=== PATIENT | female | born 1970 | race Caucasian/White ===

== ENCOUNTER 2021-07-13 14:56 | Emergency (ER) | payer OTHER ==
[~2021-07-13] VITALS: Ht 170.2 cm; Wt 72.8 kg
[2021-07-13 15:00] VITALS: BP 123/86
[2021-07-13] MEDS ORDERED: LIDOCAINE 1% Multi-Dose 20 ML VIAL. IJ ONE (15:15)
--- NOTE | 2021-07-13 15:20 | PHYS DOC ---
Past History Past Medical History: No Pertinent History (JOSE KINCAID APRN) Past Surgical History: No Surgical History (JOSE KINCAID APRN) Alcohol Use: Occasionally Drug Use: None (JOSE KINCAID APRN) General Adult EDM: Chief Complaint: LACERATION/AVULSION HPI: HPI: Patient is a 51-year-old female who presents to the emergency department for a laceration to her right ring finger. Patient reports that she was unloading something off of a folding ramp when it fell back and crushed her finger. She denies any decreased sensation to her extremity or decreased range of motion. (JOSE KINCAID APRN) Review of Systems: Review of Systems: Musculoskeletal: See HPI Integument: Ports laceration to tip of right fourth finger Neurologic: See HPI (JOES KINCAID APRN) Current Medications: Current Meds: Current Medications Medications (Trade) Dose Ordered Sig/Lynne Start Time Stop Time Status Last Admin Dose Admin Diphtheria/ Tetanus/Acell Pertussis (Boostrix) 0.5 ml ONCE ONCE 07/13/21 15:15 07/13/21 15:16 UNV Lidocaine HCl 20 ml 1X ONCE 07/13/21 15:15 07/13/21 15:16 UNV (JOSE KINCAID APRN) Allergies: Allergies: Allergies Coded Allergies Type Severity Reaction Last Updated Verified codeine Allergy Unknown 08/01/14 No (JOSE KINCAID APRN) Physical Exam: PE: Constitutional: Well developed, well nourished, no acute distress, non-toxic appearance. [] HENT: Normocephalic, atraumatic, bilateral external ears normal, oropharynx moist, no oral exudates, nose normal. [] Eyes: PERRL, EOMI, conjunctiva normal, no discharge. [] Neck: Normal range of motion, no stridor Cardiovascular normal peripheral perfusion Lungs & Thorax no work of breathing, no tachypnea Abdomen: Soft and flat Skin: Warm, dry, no erythema, no rash. [] Back: No tenderness, full range of motion Extremities: No tenderness, no cyanosis, no clubbing, ROM intact, no edema. [] Right fourth finger: 1 cm laceration noted to the tip of the finger, no visible foreign bodies, small subungual hematoma, range of motion intact, no obvious deformity Neurologic: Alert and oriented X 3, normal motor function, normal sensory function, no focal deficits noted. [] Psychologic: Affect normal, judgement normal, mood normal. [] (JOSE KINCAID APRN) Current Patient Data: Vital Signs: Vital Signs Date Time Temp Pulse Resp B/P (MAP) Pulse Ox O2 Delivery O2 Flow Rate FiO2 07/13/21 15:00 65 16 123/86 (98) 100 Room Air (JOSE KINCAID APRN) EKG: EKG: [] (JOSE KINCAID APRN) Radiology/Procedures: Radiology/Procedures: []STATUS: REG ERORD. PHYSICIAN: JOSE KINCAID APRN REASON: crush injury PROCEDURE: FINGER(S) RIGHT XR FINGER(S)_RIGHT 2+VIEWS Clinical indications: Reason: crush injury /pain. Findings: There is a fracture of the medial tuft of the fourth distal phalanx. No dislocation or lytic process is seen. IMPRESSION: Fracture of the fourth distal phalanx. Electronically signed by: Maximo Morales MD (07/13/2021 3:40 PM) [id number] DICTATED AND SIGNED BY: MAXIMO MORALES MD DATE: 07/13/21 1539 CC: [facility] [place]; JOSE KINCAID APRN ~ (JOSE KINCAID APRN) Heart Score: C/O Chest Pain: N/A Risk Factors: Risk Factors: DM, Current or recent (<one month) smoker, HTN, HLP, family history of CAD, obesity. Risk Scores: Score 0 - 3: 2.5% MACE over next 6 weeks - Discharge Home Score 4 - 6: 20.3% MACE over next 6 weeks - Admit for Clinical Observation Score 7 - 10: 72.7% MACE over next 6 weeks - Early Invasive Strategies (JOSE KINCAID APRN) Course & Med Decision Making: Course & Med Decision Making Pertinent Labs and Imaging studies reviewed. (See chart for details) [] Patient presents to the emergency department today for a laceration to the tip of her right fourth finger. Patient reports that her tetanus is up-to-date. This was cleansed in the emergency department. An x-ray was performed to rule out acute fracture. X-ray showed a fracture of the distal phalanx of the fourth finger. Patient's finger was irrigated with saline and Betadine solution. No foreign bodies noted. Laceration was repaired with sutures. Considred type I injury. Patient does have a subungual hematoma trephination was performed. Patient tolerated procedure. She is neurovascularly intact. Dressing was placed and patient was placed in a aluminum finger splint. Educated on wound care and suture removal. She was given referral information for orthopedic. I discussed with patient all findings and diagnostic testing as well as the need to follow-up with PCP for further evaluation and treatment or return to the ER if any new or worsening symptoms. Strict return precautions were also discussed at length. Patient voiced understanding and agreement with the plan. Patient is hemodynamically stable at the time of disposition. (JOSE KINCAID APRN) Dragon Disclaimer: Dragon Disclaimer: This electronic medical record was generated, in whole or in part, using a voice recognition dictation system. (JOSE KINCAID APRN) Laceration Repair Lac Repair Time: 1614 Confirmed: Patient, procedure, site, and site correct Consent: Patient has given verbal consent Laceration location: Distal portion of patient's right with finger Shape: Linear Depth: Subcutaneous tissue involvement Details: Clean with no foreign material Neurovascular, tendon exam: Intact Anesthesia: 1% lidocaine digital block Preparation: Sterile field established Irrigation: Wound irrigated with sterile saline Betadine Skin closure: Simple interrupted sutures placed Size of suture: 6-0 Ethilon Number of sutures: 5 Complexity: Single layer Post procedure exam: Circulation, motor, sensory exam intact, bleeding controlle d. Complications: None Patient tolerated: Well Performed by: self Total time: 30 minutes Trephination performed. (JOSE KINCAID APRN) Attending Co-Sign The patient was seen and interviewed as well as examined at the bedside. The chart was reviewed. The case was discussed. Agree with the plan of care. (MARISSA COLEMAN DO) Departure Departure: Impression: Primary Impression: Open finger fracture Qualified Codes: S62.664B - Nondisplaced fracture of distal phalanx of right ring finger, initial encounter for open fracture Disposition: HOME / SELF CARE / HOMELESS Condition: GOOD Referrals: JESSICA FLETCHER LMS[facility] (PCP) Patient Instructions: Finger Fracture, Laceration Care, Adult Additional Instructions: You are seen in the emergency department today following a crush injury to your finger. You are noted to have a fracture of the distal portion of your fourth finger. You were also noted to have a laceration which was repaired with sutures. Please keep this laceration site clean and dry by washing with mild soap and warm water. You will need to follow-up with your primary care provider return to the emergency department to have your sutures removed in 7 to 10 days. Keep the dressing in place as you may continue to have bleeding under your fingernail. Please wear the aluminum finger splint that was placed for you. You are being discharged home with antibiotics please start and finish it completely. Take Tylenol and ibuprofen for pain. You can also apply ice. You will need to follow-up with a hand surgeon as soon as possible. Please contact hand surgery at [phone] to set up a follow-up appointment on Thursday. Follow-up with your primary care provider on Thursday. Return to the emergency department if you develop increased pain, decreased range of motion, decreased sensation in your finger, any signs of infection as evidenced by redness, warmth, swelling or drainage, high fevers refractory to treatment, intractable nausea or vomiting. Scripts Cephalexin (KEFLEX) 500 Mg Capsule 1 CAP PO QID for infection for 7 Days, #28 CAP 0 Refills Prov: JOSE KINCAID APRN 07/13/21 JOSE KINCAID APRN Jul 13, 2021 15:20 MARISSA COLEMAN DO Jul 14, 2021 16:49
[2021-07-13] MEDS ORDERED: DIPHTH,PERTUSS(ACELL),TET TOX 0.5 ML DISP.SYRIN. VAX IM ONE (15:30)
--- NOTE | 2021-07-13 15:42 | RAD ---
XR FINGER(S)_RIGHT 2+VIEWS Clinical indications: Reason: crush injury /pain. Findings: There is a fracture of the medial tuft of the fourth distal phalanx. No dislocation or lyt ic process is seen. IMPRESSION: Fracture of the fourth distal phalanx. Electronically signed by: Nav Morales MD (07/13/2021 3:40 PM) [id number]
[2021-07-13] MEDS ORDERED: IV NORMAL SALINE 50ML 50 ML ONE (16:40)
[2021-07-13] MEDS ORDERED: cefTRIAXone SODIUM 1 GM VIAL ONE (16:40)
[2021-07-13] MEDS ORDERED: CEPH500C PO (16:46)
== END 2021-07-13 16:57 | disposition home or self-care (01) ==
LOC: ER 14:56
DX: S62.664B Nondisplaced fracture of distal phalanx of right ring finger, initial encounter for open fracture (principal); Z88.5 Allergy status to narcotic agent; W20.8XXA Other cause of strike by thrown, projected or falling object, initial encounter; Y93.89 Activity, other specified; Y92.89 Other specified places as the place of occurrence of the external cause; Y99.8 Other external cause status
CPT/HCPCS: 29130; 73140; 96374; 99283; J0696